=== PATIENT | female | born 1965 | race Caucasian/White ===

== ENCOUNTER → 2022-01-25 14:18 | Outpatient (CLI) | payer OTHER, SELFPAY ==
--- NOTE | ~2022-01-25 | CT_ITS ---
EXAMINATION: CT abdomen pelvis wo con DATE: 01/25/2022 14:44 INDICATION: Left flank pain. History kidney stones, recurrent urinary tract infections. TECHNIQUE: Computed tomography (CT) of the abdomen and pelvis was performed without intravenous contr ast. Automated exposure control and iterative reconstruction technique were employed. Exam dose: 740 .39 mGy-cm total exam DLP. COMPARISON: 01/25/2022 KUB FINDINGS: There is mild discoid atelectasis or scarring at the lung bases. Normal heart size. No mihaela cardial or pleural effusion. Cholelithiasis. No gallbladder wall thickening or pericholecystic fluid or fat stranding. No bile enedina t or pancreatic duct dilatation. No hepatic, splenic or pancreatic space-occupying mass lesion is evident. Normal morphology of the adrenal glands. No renal mass lesion or urinary tract calculus or hydroureteronephrosis. There is prominent lobular uterine enlargement with multiple uterine calcified fibroids. 1.5 cm left ovarian cyst. The urinary bladder is unremarkable. Normal appendix. Diverticulosis of left and right colon; no CT evidence of diverticulitis. No bowel o bstruction, bowel wall thickening, pneumatosis or intraperitoneal free air is detected. Normal caliber of the abdominal aorta. No intraperitoneal or retroperitoneal or pelvic mass lesion or adenopathy or ascites. No suspicious osteolytic or osteosclerotic lesions are noted. Moderately severe degenerative disc disease at L4-5 and L5-S1. IMPRESSION: Cholelithiasis No urinary tract calculus or hydroureteronephrosis Prominently enlarged lobular uterus with multiple calcified uterine fibroids 1.5 cm left ovarian cyst Normal appendix Diverticulosis of colon; no CT evidence of diverticulitis Reviewed, dictated and finalized at Location A. Reviewed, dictated and finalized at location B.
--- NOTE | ~2022-01-25 | XR_ITS ---
XR abdomen/kub 1V DATE: 01/25/2022 14:44 INDICATION: Left flank pain TECHNIQUE: AP ejection, 2 views COMPARISON: 01/25/[address] abdomen pelvis FINDINGS: Multiple calcified uterine fibroids. Calcified pelvic phleboliths. The psoas shadows are intact. No visceromegaly is detected. There is a moderately prominent of fecal material in the colon but no bowel obstruction. Mild levoscoliosis of lumbar spine. IMPRESSION: Multiple calcified uterine fibroids Reviewed, dictated and finalized at Location A. Reviewed, dictated and finalized at location B.
== END ==
PROVIDERS: PCP Physician Assistant Medical; Visit Provider Nurse Practitioner Family
DX: R10.9 Unspecified abdominal pain (principal); D25.9 Leiomyoma of uterus, unspecified; K80.20 Calculus of gallbladder without cholecystitis without obstruction; N83.202 Unspecified ovarian cyst, left side; K57.90 Diverticulosis of intestine, part unspecified, without perforation or abscess without bleeding
CPT/HCPCS: 74018; 74176

== ENCOUNTER → 2022-02-27 12:57 | Outpatient (CLI) | payer OTHER, SELFPAY ==
--- NOTE | ~2022-02-27 | US_ITS ---
EXAMINATION: US pelvic complete w TV DATE: 02/27/2022 13:54 INDICATION: Fibroids identified in the uterus on prior CT examination Comparison:CT dated 01/25/2022 TECHNIQUE: Multiple transabdominal and endovaginal sonographic images of the pelvis performed. FINDINGS: The uterus measures 12.1 x 7.2 x 6 cm. There are multiple uterine fibroids some of which ar e calcified, largest measuring 5.7 cm maximum dimension. The endometrial complex measures 7 mm. The right ovary is not visualized. Left ovary contains a 1.6 cm cyst. Left ovary measures 3.1 x 2.8 x 2.1 cm. There is no free fluid in the pelvis. There are no abnormal masses seen on either side. IMPRESSION: 1. Enlarged fibroid uterus. 2: Thickened endomtrial complex. The differential diagnosis includes endometrial hyperplasia, polyp a nd carcinoma. Biopsy is recommended. 3: Left ovarian cyst measuring 1.6 cm. Reviewed, dictated and finalized at location A. IMPRESSION: 1. Enlarged fibroid uterus. 2: Thickened endomtrial complex. The differential diagnosis includes endometria l hyperplasia, polyp and carcinoma. Biopsy is recommended. 3: Left ovarian cyst measuring 1.6 cm.
== END ==
PROVIDERS: PCP Physician Assistant Medical; Visit Provider Obstetrics & Gynecology
DX: Z11.51 Encounter for screening for human papillomavirus (HPV) (principal); Z12.4 Encounter for screening for malignant neoplasm of cervix; D25.9 Leiomyoma of uterus, unspecified; N83.202 Unspecified ovarian cyst, left side; R93.89 Abnormal findings on diagnostic imaging of other specified body structures
CPT/HCPCS: 76830; 76856

== ENCOUNTER 2022-03-30 00:15 | Day surgery (SDC) | payer OTHER, SELFPAY ==
[2022-03-14 14:38] VITALS: BMI 25.8
[2022-03-30 08:40] VITALS: BP 107/81; PULSE 84; RESP 20; TEMP 36.6; O2SAT 99; BMI 25.0
[2022-03-30] MEDS: LACTATED RINGERS 1,000 ML 150 ML IV CONT (08:49)
--- NOTE | 2022-03-30 08:52 | P.PNAN_ITS ---
Anes - Initial Pre Proc Eval Procedure: Operation Date: 03/30/22 09:45 Proposed Procedures p Screening Colonoscopy - Jose Albert MD Date/Time: 03/30/22 08:52 Surgeon: Jose Albert MD Pre Op Diagnosis: neoplasm screening, hx of colon polyps Patient Data Age: 56 Gender: F Height: 1.68 m Weight: 70.5 kg Last Vital Signs Temp 98 F 03/30/22 08:40 Pulse 84 03/30/22 08:40 Resp 20 03/30/22 08:40 BP 107/81 03/30/22 08:40 Pulse Ox 99 03/30/22 08:40 O2 Del Method Room Air 03/30/22 08:40 Allergies Allergy/AdvReac Type Severity Reaction Status Date / Time Sulfa (Sulfonamide Allergy Intermediate Hives Verified 03/30/22 08:39 Antibiotics) Home Medications Medication Instructions Recorded Confirmed Type cholecalciferol (vitamin D3) 25 25 mcg PO DAILY 02/05/22 03/14/22 History mcg (1,000 unit) capsule pravastatin 20 mg tablet 20 mg PO QHS #90 tabs 02/06/22 03/14/22 Rx Patient hx anesthesia problems: none Family hx anesthesia problems: none Results Review: All pre-operative results and documents have been reviewed as part of the pre- operative evaluation. [facility] Past Medical History Medical History (Updated 03/08/22 @ 09:40 by Thony Richmond MD) Acute sinus infection Breast cancer History of colon polyps Hyperlipidemia URI (upper respiratory infection) Surgical History Surgical History H/O mastectomy Family History Family History Father Malignant neoplasm of prostate Heart disease Cerebrovascular accident Mother Heart disease Grandparent Heart disease Social History Social History (Updated 03/07/22 @ 15:22 by Joleen Orr RN) Smoking status: Never smoker Alcohol intake: current Alcohol use details: socially Substance use: never Substance use type: does not use Living arrangements: with family 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 Informed Consent: The patient's anesthetic plan and its attendant risks and benefits were discussed with the patient/family/POA. Questions were solicited and answers provided to the satisfaction of the patient/family/POA.
--- NOTE | 2022-03-30 09:34 | PM.IMHP ---
H&P: HPI History of Present Illness Date/Time: 03/30/22 09:34 Chief Complaint: History of colon polyps. Narrative: This is a 56-year-old white female patient presents for screening colonoscopy. Patient reports that her current weight appetite and bowel movements are normal. She denies abdominal pain. Patient has had no bleeding. Family history noncontributory. Patient has prior colonoscopy 2017 showed tubular adenoma colon polyp. Patient presents today for surveillance colonoscopy. Review of Systems Review of Systems: Review of systems noncontributory. [facility] Past Medical History Medical History (Updated 03/08/22 @ 09:40 by Thony Richmond MD) Acute sinus infection Breast cancer History of colon polyps Hyperlipidemia URI (upper respiratory infection) Surgical History Surgical History H/O mastectomy Family History Family History Father Malignant neoplasm of prostate Heart disease Cerebrovascular accident Mother Heart disease Grandparent Heart disease Social History Social History (Updated 03/07/22 @ 15:22 by Joleen Orr RN) Smoking status: Never smoker Alcohol intake: current Alcohol use details: socially Substance use: never Substance use type: does not use Living arrangements: with family 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, [employer] Spiritual care concerns: No Agree to blood products: Yes Meds Home Medications and Allergies Home Medications Medication Instructions Recorded Confirmed Type cholecalciferol (vitamin D3) 25 25 mcg PO DAILY 02/05/22 03/14/22 History mcg (1,000 unit) capsule pravastatin 20 mg tablet 20 mg PO QHS #90 tabs 02/06/22 03/14/22 Rx Allergies Allergy/AdvReac Type Severity Reaction Status Date / Time Sulfa (Sulfonamide Allergy Intermediate Hives Verified 03/30/22 08:39 Antibiotics) Vital Signs Vital Signs - 24 hr 03/30/22 08:40 Temperature 98 F Pulse Rate 84 Respiratory Rate 20 Blood Pressure 107/81 Pulse Oximetry 99 Oxygen Delivery Room Air Exam Narrative: Physical exam reveals patient to be alert. Vital signs stable. HEENT exam unremarkable. Patient is anicteric. Lungs are clear to auscultation and percussion. Heart is without murmur or extra sounds. Abdomen bowel sounds present soft nontender with no organomegaly. Digital external rectal exam is normal. Assessment and Plan Assessment and plan (1) History of colon polyps: Code(s): Z86.010 - Personal history of colonic polyps Status: Acute Assessment and Plan: Patient presents for screening colonoscopy. Has a history of colon polyp 5 years ago. Surveillance colonoscopy suggested at 5 year intervals.
[2022-03-30 09:56] VITALS: BP 99/64; PULSE 78; RESP 16; O2SAT 99
[2022-03-30 10:06] VITALS: BP 98/60; PULSE 72; RESP 20; O2SAT 98
[2022-03-30 10:16] VITALS: BP 106/71; PULSE 74; RESP 20; O2SAT 98
== END 2022-03-30 10:21 | disposition home or self-care (01) ==
PROVIDERS: PCP Family Medicine; Visit Provider Internal Medicine Gastroenterology
PROC: 0DJD8ZZ Inspection of Lower Intestinal Tract, Via Natural or Artificial Opening Endoscopic (ICD-10-PCS; CPT 45378; principal; 2022-03-30 09:45)
DX: Z12.11 Encounter for screening for malignant neoplasm of colon (principal); Z86.010 Personal history of colon polyps; K64.8 Other hemorrhoids; K57.30 Diverticulosis of large intestine without perforation or abscess without bleeding; Z85.3 Personal history of malignant neoplasm of breast; E78.5 Hyperlipidemia, unspecified
CPT/HCPCS: 45378; J2704; J7120

== ENCOUNTER 2022-04-23 15:33 | Outpatient (CLI) | payer OTHER, SELFPAY ==
--- NOTE | ~2022-04-23 | DEXA_ITS ---
Bone Density Report Name: HELGA MAY Age: 56 Sex: Female Ethnicity: White Date of : 1965 Indication: postmenopausal; screening for osteoporosis; height loss; cancer; Referring Provider: SAVANNAH, LUKAS Granados Study: Bone densitometry was performed. Exam Date: April 23, 2022 Accession number: [id number] Bone Density: Region BMD T-score Z-score Classification AP Spine(L1-L4) 1.147 0.9 2.2 Normal Femoral Neck (Left) 0.905 0.5 1.7 Normal Total Hip (Left) 1.022 0.7 1.5 Normal Femoral Neck (Right) 0.962 1.0 2.2 Normal Total Hip (Right) 1.041 0.8 1.6 Normal Total Hip Mean 1.031 0.8 1.6 Normal World Health Organization criteria for BMD impression classify patients as: Normal (T-score at or above -1.0), Osteopenia (T-score between -1.0 and -2.5), or Osteoporosis (T-score at or below -2.5). 10-year Fracture Risk: FRAX not reported because: All T-scores for Spine Total, Hip Total, Femoral Neck at or above -1.0 Clinical Information Provided by Patient: Has used the following medications: Vitamin D Has the following medical conditions: Cancer Patient maximum height was 66 Menopause Age: 51 Does not regularly consume dairy products Drinks caffeinated beverages Onset of menses at age 10 Number of children 2 Impression: The patient has normal bone mass. Discussion: BONE DENSITY IS ABOVE THE MINIMUM DESIRABLE LEVEL AT ALL SKELETAL SITES TESTED. This patient?s bone mineral density is above the minimum desirable level (T-score -1.0 or better) at all sites measured. The patient should follow a healthful lifestyle (good nutrition with adequate calcium and vitamin D, and appropriate weight-bearing exercise). Follow-Up: Consider repeating this study in 5 years or sooner if there is some new clinical indication. Reported by: SAMANTHA on 04/23/2022 3:50:00 PM. Reviewed, dictated and finalized at location AYves WHEELER
== END 2022-04-23 15:34 | disposition home or self-care (01) ==
PROVIDERS: PCP Family Medicine; Visit Provider Family Medicine
DX: Z78.0 Asymptomatic menopausal state (principal)
CPT/HCPCS: 77080

== ENCOUNTER 2025-02-02 11:09 | Outpatient (CLI) | payer OTHER, SELFPAY ==
--- NOTE | ~2025-02-02 | US_ITS ---
EXAM: ABDOMEN ULTRASOUND HISTORY: R10.11 - Right upper quadrant pain COMPARISON: Reference is made to CT examination of the abdomen and pelvis dated 01/25/2022 FINDINGS: LIVER: The liver is unremarkable in echogenicity and size The portal vein is patent, demonstrating hepatopedal flow. The contour of the liver surface is smooth . GALLBLADDER: Multiple avascular polyps are identified within the gallbladder, which is otherwise unre markable. No gallbladder wall thickening or pericholecystic fluid. BILE DUCTS: Common bile duct measures 3.2mm. PANCREAS: Limited evaluation of the pancreas secondary to overlying bowel gas IMPRESSION: Limited evaluation of the pancreas secondary to overlying bowel gas Multiple avascular polyps within the gallbladder, which is otherwise unremarkable. Reviewed, dictated and finalized at location A. IMPRESSION: Limited evaluation of the pancreas secondary to overlying bowel gas Multiple avascular polyps within the gallbladder, which is otherwise unremarkab le.
== END 2025-02-02 11:10 | disposition home or self-care (01) ==
PROVIDERS: PCP Physician Assistant Medical; Visit Provider Nurse Practitioner Family
DX: K82.4 Cholesterolosis of gallbladder (principal)
CPT/HCPCS: 76705

== ENCOUNTER 2025-02-19 12:44 | Outpatient (CLI) | payer OTHER, SELFPAY ==
--- OUTSIDE RECORDS SUMMARY | 2025-02-19 12:48 | XMS_ITS | Encounter Summary ---
Author Organization [facility] Address [address] [place] [address] Care Team Providers Care Marine Cargo Surveyor Name Role Phone Unavailable Primary Care Provider Unavailabl e Encounter Details Date Type Department Care Team (Late st Contact Info) Description 08/28/2022 Lab Requisition [facility] DermPath Lab [address] [place] [address] Bakari Cowart MD [address] [place] [id number] Social History Tobacco Use Types Packs/Day Years Used Date Smoking Tobacco: Never Assessed Comments Unknown Sex and Gender Information Value Date Recorded Sex Assigned at Not on file 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 Gender Identity Not on file Sexual Orientation Not on file documented as of this encounter Plan of Treatment Not on file documented as of this encounter Procedures Procedure Name Priority Date/Time Associated Diagnosis Comments DERMATOPATHOLOGY Routine 08/28/2022 12:0 0 AM MINE EXPLORATION ENGINEER documented in this encounter Results * DERMATOPATHOLOGY (08/28/2022 12:00 AM MINE EXPLORATION ENGINEER) Case Report Dermatopathology Report Case: [id number] Authorizing Provider: Bakari Cowart MD Collected: 08/28/2022 12:00 AM Ordering Location: [facility] Derm[facility] Lab Received: 08/28/2022 04:08 PM Pathologist: Demarcus Franks MD Specimen: Skin, right anterior thigh 3 4:16 PM MINE EXPLORATION ENGINEER DERMATOPATHOLOGY LABORATORY Final Diagnosis Specimen A. SKIN, right anterior thigh: BENIGN VERRUCOUS KERATOSIS (L82.1) EPIDERMAL NECROSIS SUGGESTIVE OF EXCORIATION (L98.499) 3 4:16 PM MINE EXPLORATION ENGINEER DERMATOPATHOLOGY LABORATORY at 1616 MINE EXPLORATION ENGINEER Clinical History BCC vs SCC. Path#: [id number] 3 4:16 PM [facility] DERMATOPATHOLOGY LABORATORY Gross Description Specimen A: Received is one formalin filled container labeled with the patient's name and designated right anterior thigh. The specimen consists of a shave biopsy measuring 7x5x1 mm. Jar 0. 4:16 PM [facility] DERMATOPATHOLOGY LABORATORY Microscopic Description Specimen A. SKIN, right anterior thigh: Sections show hyperkeratosis, papillomatosis, hypergranulosis, and acanthosis. These histological findings can be seen in a verruca vulgaris or a seborrheic keratosis. The epidermis is focally necrotic and covered with a scale-crust. There is fibrin at the base. 4:16 PM [facility] DERMATOPATHOLOGY LABORATORY Disclaimer An external and internal positive and negative controls are appropriate for the histochemical, immunohistochemical and immunofluorescence stain(s) in this case (if any), except where stated explicitly. The performance characteristics of the stain(s) cited in this report were developed and its performance characteristic determined by the Dermatopathology Laboratory at [facility], directed by Dr. Hugh Franks. These tests need not be, and therefore are not, approved by the [place] Food and Drug Administration. The tests are used for clinical purposes. Billing Codes Specimen Charges Stain Charges 36076 1 3 4:16 PM [facility] DERMATOPATHOLOGY LABORATORY Embedded Images 4:16 PM [facility] DERMATOPATHOLOGY LABORATORY Pathology/Cytolog y TISSUE SPECIMEN FROM SKIN / Unknown 08/28/2022 08/28/2022 4:08 PM MINE EXPLORATION ENGINEER us Bakari Cowart MD LAB - PATHOLOGY/CYTOLOGY ORDER ADRIA Final Result DERMATOPATHOLOGY LABORATORY [facility] - Department of Dermatology [address] [place] [address], [facility] [phone] documented in this encounter Visit Diagnoses Not on filedocumented in this encounter
--- OUTSIDE RECORDS SUMMARY | 2025-02-19 12:48 | XMS_ITS | Clinical Summary ---
Author Organization [facility] Address [address] [place] [address] Care Team Providers Care Wood Heel Flap Trimmer Name Role Phone Unavailable Primary Care Provider Unavailabl e Source Comments [facility],non-owned Affiliates and Associated Physician Practices is amultiple site organization consisting of ambulatory clinics and hospital sitesin [place], [place], [place] and [place]. This disclosure is being madepursuant to the Care Everywhere program and may not contain all information available regarding this patient. 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 Gender Identity Not on file Sexual Orientation Not on file Plan of Treatment Health Maintenance Due Date Last Done Comments COLOGUARD (AGES 45-75) - COL ON CA SCREENING 1965 COLON MONITORING 1965 COLONOSCOPY - COLON CA SCREENING 1964 CT COLONOGRAPHY - COLON CA SCREENING 1965 Colorectal Cancer Screening 1965 FIT - COLON CA SCREENING 1965 FLEX SIG - COLON CA SCREENING 1965 LIPID TESTING 1965 MAMMOGRAM 1965 HIV SCREENING 1979 HEPATITIS C SCREENING 05/20/1982 DTAP/TDAP/TD VACCINES (1 - Tdap) 1983 PAP SMEAR 1985 PNEUMOCOCCAL VACCINE 50+ (1 of 1 - PCV) 2014 ZOSTER VACCINE (1 of 2) 2014 COVID-19 VACCINE ( - 2023-2 5 season) 2024 DEPRESSION SCREENING 07/08/2024 INFLUENZA VACCINE (#1) 2025 Respiratory Syncytial Virus (RSV) Vaccine Pt: or over 60 yrs (1 - 1-dose 75+ series) 2039 HEPATITIS B VACCINE Aged Out No longe r eligible based on patient's age to complete this topic HIB VACCINE Aged Out No longer eligi ble based on patient's age to complete this topic HPV VACCINE Aged Out No longer eligi ble based on patient's age to complete this topic MENINGOCOCCAL (Group B) VACC INE SHARED DECISION-MAKING Aged Out No longer eligibl e based on patient's age to complete this topic MENINGOCOCCAL GROUPS A/C/Y/W VACCINE Aged Out No longer eligible b ased on patient's age to complete this topic Insurance [facility] Address: [facility] [id number] [place] [address]
--- OUTSIDE RECORDS SUMMARY | 2025-02-19 12:48 | XMS_ITS | Clinical Summary ---
Author Organization [facility] Address [address] [place] [address] Care Team Providers Care Quartz Miner Name Role Phone Mis Maharaj MD Unavailable Christin Barrientos MD Unavailable [phone] Lashawn Kc PhD Unavailable [phone] Roxane Loving Primary Care Provider Allergies Active Allergy Reactions Criticality Noted Date Comments Sulfa (Sulfonamide Antibiotics) Unknown,Hives Medium 0 09/04/2016 Medications cholecalciferol (VITAMIN D-3) 1,000 unit tablet Take 1 tablet (1,000 Units total) by mouth daily Active rosuvastatin (CRESTOR) 20 mg tablet TAKE 1 TAB ORALLY DAILY 10/14/2024 Active Active Problems Problem Noted Date Diagnosed Date 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 03/11/2018 Cancer Staging:Clinical: Unsigned Pathologic:Stage 0(pTis (DCIS), pN0, cM0, G2, ER: Positive, NC: Positive, HER2: Not Assessed) - Signed by Lashawn Kc, PhD on 03/11/2018 History of breast cancer 03/11/2018 Immunizations Immunization Administration Dates Next Due Influenza, Quadrivalent, Flower l Culture-based MDCK, Preservative Free, Antibiotic Free, Intramuscular 04/15/2019 Influenza, Quadrivalent, Spl it, Preservative Free, Intramuscular 05/01/2021,04/26/2020,04/25/2018,04/24 Tdap 04/15/2019 Family History Medical History Relation Name Comments Prostate cancer Father Family histo ry of malignant neoplasm of prostate - (Added by TW Conv) Relation Name Status Comments Father Social History Tobacco Use Types Packs/Day Years Used Date Smoking Tobacco: Never Smokeless Tobacco: Never Tobacco Cessation:Counseling Given: Not Answered Alcohol Use Standard Drinks/Week Comments Yes 0 (1 standard drink = 0.6 oz pur e alcohol) occasionally Comments No Sex and Gender Information Value Date Recorded Sex Assigned at Not on file Legal Sex Female 11:58 AM CASHIER GREETER Gender Identity Female 11/21/2021 2:45 PM CDT Sexual Orientation Straight 11/21/2021 2: 45 PM CDT Obstetrics History Last Filed Vital Signs Vital Sign Reading Time Taken Comments Blood Pressure 110/79 11/01/2024 2:20 PM CDT Pulse 84 11/01/2024 2:20 PM CDT Temperature 37.2 C (98.9 F) 11/01/2024 2:20 PM CDT Respiratory Rate 20 11/01/2024 2:20 PM CDT Oxygen Saturation 97% 11/01/2024 2:20 PM CDT Inhaled Oxygen Concentration - - Weight 65.8 kg (145 lb) 11/01/2024 2:20 PM CDT Height 167.6 cm (5' 5.98) 08/11/2021 1:46 PM CS T Body Mass Index 23.42 08/11/2021 1:46 PM CASHIER GREETER Plan of Treatment Health Maintenance Due Date Last Done Comments Cervical Cancer Screening 1964 Colon Cancer Screening-Colonoscopy 1964 Depression Screening 1964 Hepatitis C Screening 1964 Hepatitis B Screening 1982 Regular Well Visit/Exam 18-64 1982 Zoster Vaccine (1 of 2) 2014 Covid-19 Vaccine ( season) 2024 05/11/2021, 08/19/2020, 07/21/2020 Influenza Vaccine (#1) 2025 , 04/26/2020, 04/15/2019, Additional history exists Breast Cancer Screening-Mammogram 09/04/2025 09/04/2024, 08/30/2023, 08/17/2022, Additional history exists DTaP/Tdap/Td Vaccine (2 - Td or Tdap) 04/15/2029 04/15/2019 Pneumococcal vaccine <65 Aged Out No longer eligible based on patient's age to complete this topic Procedures Procedure Name Priority Date/Time Associated Diagnosis Comments SCREENING MAMMOGRAM BILATERAL W ALEX Schedule Routine, Read Routine (OP Routine) 09/04/2024 11:04 AM CASHIER GREETER History of breast cancer from Last 3 Months or Most Recently Relevant to Health Maintenance Results * Screening Mammogram Bilateral W Alex (09/04/2024 11:04 AM CASHIER GREETER) Anatomical Region Laterality Modality Breast Bilateral Mammography Narrative 09/07/2024 10:32 AM CASHIER GREETER Mammogram Technique: Bilateral Digital Breast Tomosynthesis, Bilateral C-view 2D Screening mammogram. Views obtained: bilateral craniocaudal and bilateral mediolateral oblique. Computer Aided Detection was performed. Mammogram Findings: The present examination has been compared to prior imaging studies performed at [facility] on 08/17/2022, 08/30/2023 and 09/26/2023. There are scattered areas of fibroglandular density. There are post breast conservation therapy changes in the right breast. There is no suspicious abnormality in either breast. Impression: There is no mammographic evidence of malignancy. Annual screening mammography is recommended. OVERALL FINAL ASSESSMENT: BI-RADS CATEGORY 2: Benign. Procedure Note Sharan Meza MD - 09/07/2024 Mammogram Technique: Bilateral Digital Breast Tomosynthesis, Bilateral C-view 2D Screening mammogram. Views obtained: bilateral craniocaudal and bilateral mediolateral oblique. Computer Aided Detection was performed. Mammogram Findings: The present examination has been compared to prior imaging studies performed at [facility] on 08/17/2022, 08/30/2023 and 09/26/2023. There are scattered areas of fibroglandular density. There are post breast conservation therapy changes in the right breast. There is no suspicious abnormality in either breast. Impression: There is no mammographic evidence of malignancy. Annual screening mammography is recommended. OVERALL FINAL ASSESSMENT: BI-RADS CATEGORY 2: Benign. Nataliya Phan MAT CLEANING MACHINE OPERATOR IMG MAMMO PROCEDURES Final Result from Last 3 Months or Most Recently Relevant to Health Maintenance Insurance [facility] PPO [facility]POS CIGNA CIGNA Care Teams Quartz Miner Relationship Specialty [place] [address] [place] [address] PCP - General Family Practice 08/06/22 Mis Maharaj MD [address] [facility] [address] [place] [address] Radiation Oncologist Radiation Oncology 03/11/18 Christin Barrientos MD [address] [place] [address] Referring Physician Surgical Oncology 03/11/18 Lashawn Kc, PhD [address] [place] [address] Nurse Practitioner Radiation Oncology 09/08/18
--- OUTSIDE RECORDS SUMMARY | 2025-02-19 12:48 | XMS_ITS | Clinical Summary ---
Author Organization [facility] Address [address] [place] [address] Care Team Providers Care Design Verification Engineer Name Role Phone Roxane Loving PA-C Primary Care Provider [phone] Allergies Active Allergy Reactions Criticality Noted Date Comments Sulfa Antibiotics Hives 07/19/2024 Medications ondansetron (ZOFRAN-ODT) 4 MG disintegrating tablet Take 1 tablet (4 mg total) by mouth every 8 (eight) hours as needed for Nausea. 20 tablet 5 Active traMADol (ULTRAM) 50 MG tabletIndications:A cute Pain < 7 Day Supply Take 1 tablet (50 mg total) by mouth every 6 (six) hours as needed. Indications : Acute Pain < 7 Day Supply 20 tablet 5 Active naproxen (NAPROSYN) 500 MG tablet TAKE 1 TABLET BY MOUTH TWICE A DAY WITH MEALS 60 tablet 5 Active Social History Tobacco Use Types Packs/Day Years Used Date Smoking Tobacco: Never Smokeless Tobacco: Never Tobacco Cessation:Counseling Given: Not Answered Alcohol Use Standard Drinks/Week Comments Never 0 (1 standard drink = 0.6 oz pur e alcohol) Comments Unknown Sex and Gender Information Value Date Recorded Sex Assigned at Not on file Legal Sex Female 5:46 PM CDT Gender Identity Not on file Sexual Orientation Not on file Last Filed Vital Signs Vital Sign Reading Time Taken Comments Blood Pressure 125/81 07/19/2024 9:23 AM SCHOOL RESOURCE OFFICER Pulse 66 07/19/2024 9:23 AM SCHOOL RESOURCE OFFICER Temperature 36.7 C (98 F) 07/19/2024 9:23 AM SCHOOL RESOURCE OFFICER Respiratory Rate 18 07/19/2024 9:23 AM SCHOOL RESOURCE OFFICER Oxygen Saturation 95% 07/19/2024 8:38 AM SCHOOL RESOURCE OFFICER Inhaled Oxygen Concentration - - Weight 65.8 kg (145 lb) 07/19/2024 7:21 AM SCHOOL RESOURCE OFFICER Height 165.1 cm (5' 5) 07/19/2024 7:16 AM SCHOOL RESOURCE OFFICER Body Mass Index 24.13 07/19/2024 7:16 AM SCHOOL RESOURCE OFFICER Plan of Treatment Health Maintenance Due Date Last Done Comments Cervical Cancer Screening Pap Smear (Age 30 to 64) Every 3 Years 1964 Colorectal Cancer Screening Colonoscopy (10 Years) 1964 Annual Physical 1967 Hepatitis C 1982 Cervical Cancer Screening Pap with HPV Testing (Age 30 to 64) Every 5 Years 1994 Cervical Cancer Screening with HPV 1994 Pneumococcal Vaccine: 50+ Years (1 of 1 - PCV) 2014 Zoster Vaccines (1 of 2) 2014 COVID-19 Vaccine ( - season) 2024 05/11/2021, 08/19/2020, 07/21/2020 Mammogram Screening 09/25/2025 09/26/2023, 08/30/2023, 08/17/2022, Additional history exists DTaP, Tdap and Td Vaccines (2 - Td or Tdap) 04/15/2029 04/15/2019 RSV Immunization or 60+ Years (1 - 1-dose 75+ series) 2039 Meningococcal B Vaccine Aged Out No l [place] eligible based on patient's age to complete this topic Meningococcal Vaccine Aged Out No [place] eligible based on patient's age to complete this topic RSV Immunizations Under 20 Months Aged Out No longer eligible based on patient's age to complete this topic Insurance [employer] Care Teams Design Verification Engineer Relationship Specialty Start Date End Date Roxane Loving PA-C [address] [place] [address] [address] [place] [address] PCP - General PHYSICIAN SOLAR PHOTOVOLTAIC ELECTRICIAN 07/25/23
--- NOTE | 2025-02-19 12:59 | ECG_ITS ---
Test Date: 2025-02-19 13:14:13 Measurements Intervals [place] Rate: 80 P: 36 MD: 126 QRS: 11 QRSD: 114 T: 63 QT: 375 QTc: 434 Interpretive Statements SINUS RHYTHM WITH SINUS ARRHYTHMIA INCOMPLETE RIGHT BUNDLE BRANCH BLOCK BORDERLINE ST-T WAVE ABNORMALITY- ANT/HIGH LAT LEADS BASELINE ARTIFACT- I, II, III, AVR, AVL ,AVF BORDERLINE ECG No previous ECG available for comparison Electronically Signed On 02-19-2025 13:54:11 CDT by Devin Redman D.O.
[2025-02-19 13:49] LABS: Amylase 98 U/L (30-110); Lipase 122 U/L (23-300)
== END 2025-02-19 12:45 | disposition home or self-care (01) ==
PROVIDERS: PCP Physician Assistant Medical; Visit Provider Surgery
DX: Z01.818 Encounter for other preprocedural examination (principal); K80.20 Calculus of gallbladder without cholecystitis without obstruction
CPT/HCPCS: 36415; 82150; 83690; 93005

== ENCOUNTER 2025-03-01 00:34 | Day surgery (SDC) | payer OTHER, SELFPAY ==
[2025-02-18 11:51] VITALS: BMI 25.0
--- NOTE | 2025-02-18 11:52 | PC.NURSE ---
Report to the Outpatient Waiting Room, entrance under the green pavilion located off [facility], at time _0900_ on date _03-01-25_. Planned Procedure Time: _1100_.? Time changes happen often and if your time is changed the preop area will call you the afternoon before. - You and your visitor will be asked to self-screen and do not enter if you have any COVID symptoms. Please call surgeon if you need to reschedule. - A mask is optional within the hospital at this time. Patients may have clear liquids (water, carbonated beverages, clear teas, apple juice) until 3 hours prior to surgery with a maximum of 20 ounces. - No food from midnight until time of surgery and no smoking, or chewing tobacco (or any form of nicotine). No chewing gum, candy or mints. Take only the following medications with a SIP of water on the morning of surgery: __None DO NOT STOP ANY OF YOUR OTHER PRESCRIPTION MEDICATIONS PRIOR TO SURGERY EXCEPT THE FOLLOWING Hold all vitamins and supplements for 3 days per anesthesiologist. Medications to discontinue per physician Date to take last dose Please no make-up, nail jordanian, hairspray, perfume, deodorant, or body powder the day of surgery.? No jewelry (including any body piercings) or valuables the day of surgery, leave them at home.? Please take a shower or bath the night before, or the morning of, surgery with an antibacterial soap.? Wear comfortable, loose fitting clothing.? - Jewelry must be removed prior to entering the operating room.? Rings and piercings that are not removed may be cut off. - The hospital will not accept responsibility for valuables.? - Please leave all valuables, including medications, at home the day of surgery. If you are going home after surgery, a licensed coach driver must drive you home.? - NO public transportation without another adult if you receive anesthesia. - We recommend that an adult stay with you for 24 hours following discharge. - We also recommend that you do not drive, make important decision, drink alcoholic beverages, or take any drugs that were not prescribed by your health care provider for at least 24 hours after your discharge time. Follow any additional instructions given to you from your surgeon. Telephone instructions given to __Briana__and asked if any additional questions and then verbalized understanding. Patient advised to call surgeon office or pre surgery nurse liaison [phone] if any additional questions.
[2025-03-01] VITALS (9 sets, daily range): BP systolic 101–128; BP diastolic 62–77; PULSE 68–88; RESP 10–18; TEMP 36.2–36.9; O2SAT 99–100
--- OUTSIDE RECORDS SUMMARY | 2025-03-01 00:36 | XMS_ITS | Clinical Summary ---
Author Organization [facility] Address [address] [place] [address] Care Team Providers Care Executive Vice President And Chief Financial Officer Name Role Phone Roxane Loving PA-C Primary Care Provider [phone] Allergies Active Allergy Reactions Criticality Noted Date [...] Comments Blood Pressure 125/81 07/19/2024 9:23 AM NEW ACCOUNTS REPRESENTATIVE Pulse 66 07/19/2024 9:23 AM NEW ACCOUNTS REPRESENTATIVE Temperature 36.7 C (98 F) 07/19/2024 9:23 AM NEW ACCOUNTS REPRESENTATIVE Respiratory Rate 18 07/19/2024 9:23 AM NEW ACCOUNTS REPRESENTATIVE Oxygen Saturation 95% 07/19/2024 8:38 AM NEW ACCOUNTS REPRESENTATIVE Inhaled Oxygen Concentration - - Weight 65.8 kg (145 lb) 07/19/2024 7:21 AM NEW ACCOUNTS REPRESENTATIVE Height 165.1 cm (5' 5) 07/19/2024 7:16 AM NEW ACCOUNTS REPRESENTATIVE Body Mass Index 24.13 07/19/2024 7:16 AM NEW ACCOUNTS REPRESENTATIVE Plan of Treatment Health Maintenance Due Date [...] complete this topic Insurance [employer] Care Teams Executive Vice President And Chief Financial Officer Relationship Specialty Start Date End Date Roxane Loving PA-C [address] [place] [address] [address] [place] [address] PCP - General PHYSICIAN SCREENER AND BLENDER OPERATOR 07/25/23
--- OUTSIDE RECORDS SUMMARY | 2025-03-01 00:36 | XMS_ITS | Encounter Summary ---
Author Organization [facility] Address [address] [place] [address] Care Team Providers Care Flight Control Manager Name Role Phone Unavailable Primary Care Provider Unavailabl e Encounter Details Date Type Department Care Team (Late st Contact Info) Description 08/28/2022 Lab Requisition [facility] [address] [facility] [place] [address] Bakari Cowart MD [address] [place] [address] Social History Tobacco Use Types Packs/Day Years Used Date Smoking Tobacco: Never Assessed Comments Unknown Sex and Gender Information Value Date Recorded Sex Assigned at Not on file Legal Sex Female 3:34 PM WAITER/WAITRESS COUNTER Gender Identity Not on file Sexual Orientation Not on file documented as of this encounter Plan of Treatment Not on file documented as of this encounter Procedures Procedure Name Priority Date/Time Associated Diagnosis Comments DERMATOPATHOLOGY Routine 08/28/2022 12:0 0 AM WAITER/WAITRESS COUNTER documented in this encounter Results * DERMATOPATHOLOGY (08/28/2022 12:00 AM WAITER/WAITRESS COUNTER) Case Report Dermatopathology Report Case: [id number] Authorizing Provider: Bakari Cowart MD Collected: 08/28/2022 12:00 AM Ordering Location: [facility] Received: 08/28/2022 04:08 PM Pathologist: Demarcus Franks MD Specimen: Skin, right anterior thigh 3 4:16 PM WAITER/WAITRESS COUNTER DERMATOPATHOLOGY LABORATORY Final Diagnosis Specimen A. SKIN, right anterior thigh: BENIGN VERRUCOUS KERATOSIS (L82.1) EPIDERMAL NECROSIS SUGGESTIVE OF EXCORIATION (L98.499) 3 4:16 PM WAITER/WAITRESS COUNTER DERMATOPATHOLOGY LABORATORY at 1616 WAITER/WAITRESS COUNTER Clinical History BCC vs SCC. Path#: [id number] 3 4:16 PM [facility] Gross Description Specimen A: Received is one formalin filled container labeled with the patient's name and designated right anterior thigh. The specimen consists of a shave biopsy measuring 7x5x1 mm. Jar 0. 4:16 PM [facility] DERMAT[facility]ORATORY Microscopic Description Specimen A. SKIN, right anterior thigh: Sections show hyperkeratosis, papillomatosis, hypergranulosis, and acanthosis. These histological findings can be seen in a verruca vulgaris or a seborrheic keratosis. The epidermis is focally necrotic and covered with a scale-crust. There is fibrin at the base. 4:16 PM [facility]ORATORY Disclaimer An external and internal positive and negative controls are appropriate for the histochemical, immunohistochemical and immunofluorescence stain(s) in this case (if any), except where stated explicitly. The performance characteristics of the stain(s) cited in this report were developed and its performance characteristic determined by the Dermatopathology Laboratory at [facility], directed by Dr. Hugh Franks. These tests need not be, and therefore are not, approved by the [place] Food and Drug Administration. The tests are used for clinical purposes. Billing Codes Specimen Charges Stain Charges 59680 1 3 4:16 PM [facility] Embedded Images 4:16 PM [facility] Pathology/Cytolog y TISSUE SPECIMEN FROM SKIN / Unknown 08/28/2022 08/28/2022 4:08 PM WAITER/WAITRESS COUNTER us Bakari Cowart MD LAB - PATHOLOGY/CYTOLOGY ORDER [place] Final Result DERMATOPATHOLOGY LABORATORY [facility] - Department of Dermatology [address] [place] [address], [facility] [phone] documented in this encounter Visit Diagnoses Not on filedocumented in this encounter
--- OUTSIDE RECORDS SUMMARY | 2025-03-01 00:36 | XMS_ITS | Clinical Summary ---
Author Organization [facility] Address [address] [place] [address] Care Team Providers Care Career Portals Teacher Name Role Phone Unavailable Primary Care Provider Unavailabl e Source Comments [facility],non-owned Affiliates and Associated Physician Practices is amultiple site organization consisting of ambulatory clinics and hospital sitesin [place], [place], [place] and [place]. This disclosure is being madepursuant to the Care Everywhere program and may not contain all information available regarding this patient. Last updated 18.[facility] Social History Tobacco Use Types Packs/Day Years Used Date Smoking Tobacco: Never Assessed Comments Unknown Sex and Gender Information Value Date Recorded Sex Assigned at Not on file Legal Sex Female 3:34 PM SOCCER BALL ASSEMBLER Gender Identity Not on file Sexual Orientation [...] patient's age to complete this topic Insurance [facility] Address: [facility] [id number] [place] [address]
--- OUTSIDE RECORDS SUMMARY | 2025-03-01 00:36 | XMS_ITS | Clinical Summary ---
Author Organization [facility] Address [address] [place] [address] Care Team Providers Care Printing Machinist Name Role Phone Mis Maharaj MD Unavailable Christin Barrientos MD Unavailable [phone] Lashawn Kc PhD Unavailable [phone] Roxane Loving Primary Care Provider [phone] Allergies Active Allergy Reactions Criticality Noted Date [...] 0(pTis (DCIS), pN0, cM0, G2, ER: Positive, [place]: Positive, HER2: Not Assessed) - Signed by [...] on file Legal Sex Female 11:58 AM BATH ATTENDANT Gender Identity Female 11/21/2021 2:45 PM CDT [...] Body Mass Index 23.42 08/11/2021 1:46 PM BATH ATTENDANT Plan of Treatment Health Maintenance Due Date [...] Read Routine (OP Routine) 09/04/2024 11:04 AM BATH ATTENDANT History of breast cancer from Last 3 Months or Most Recently Relevant to Health Maintenance Results * Screening Mammogram Bilateral W Alex (09/04/2024 11:04 AM BATH ATTENDANT) Anatomical Region Laterality Modality Breast Bilateral Mammography Narrative 09/07/2024 10:32 AM BATH ATTENDANT Mammogram Technique: Bilateral Digital Breast Tomosynthesis, Bilateral C-view 2D Screening mammogram. Views obtained: bilateral craniocaudal and bilateral mediolateral oblique. Computer Aided Detection was performed. Mammogram Findings: The present examination has been compared to prior imaging studies performed at [facility] on 08/17/2022, 08/30/2023 and 09/26/2023. There are [...] compared to prior imaging studies performed at [facility] on 08/17/2022, 08/30/2023 and 09/26/2023. There are scattered areas of fibroglandular density. There are post breast conservation therapy changes in the right breast. There is no suspicious abnormality in either breast. Impression: There is no mammographic evidence of malignancy. Annual screening mammography is recommended. OVERALL FINAL ASSESSMENT: BI-RADS CATEGORY 2: Benign. Nataliya Phan COMMUNITY EDUCATOR IMG MAMMO PROCEDURES Final Result from Last 3 Months or Most Recently Relevant to Health Maintenance Insurance [facility] CIGNA CIGNA Care Teams Printing Machinist Relationship Specialty [place] [address] [place] [address] PCP - General Family Practice 08/06/22 Mis Maharaj MD [address] [facility] [address] [place] [address] Radiation Oncologist Radiation Oncology 03/11/18 Christin Barrientos MD [address] [place] [address] Referring Physician Surgical Oncology 03/11/18 Lashawn Kc, PhD [address] [place] [address] Nurse Practitioner Radiation Oncology 09/08/18
[2025-03-01] MEDS: ACETAMINOPHEN 500 MG TABLET 1000 MG PO (09:21)
[2025-03-01] MEDS: LACTATED RINGERS 1,000 ML 30 ML IV CONT ×2 (09:25→12:20)
[2025-03-01] MEDS: KETOROLAC 15 MG/ML VIAL (*BKC) IV PUSH (09:27)
--- NOTE | 2025-03-01 10:20 | S_PTH ---
PATIENT: Briana Hernandez LOC: [facility] U#:[id number] AGE/SX: 59/F ROOM: RE03/01/[address]: Orlin Joyce MD : 1965 BED: DIS: 03/01/2025 SPEC #: [id number] RECD: 03/01/25 13:04 STATUS: JESUS MANUEL REQ #: [id number] ANAIS: 03/01/25 10:[address]: Orlin Joyce DEPT: [facility] Surgical RECD BY: An Hare ENTERED: 03/01/25 13:04 SP TYPE: Surgical OTHR DR: Roxane Loving PA-C Tissues: A - Gallbladder Procedures: Hematoxylin and Eosin Stain Gross and Microscopic Level 3
--- NOTE | 2025-03-01 10:33 | WPDHPUPDATE1 ---
History and Physical Update Update Date/Time: 03/01/25 10:33 History and Physical has been reviewed, including an updated exam of the patient. There are NO changes in the patient's condition. Risks, benefits, and alternatives have been discussed and questions answered. Patient agrees to proceed with procedure.
--- NOTE | 2025-03-01 10:48 | WPDANESEPPF ---
Anes - Initial Pre Proc Eval Procedure: Operation Date: 03/01/25 11:00 Proposed Procedures p Laparoscopic Cholecystectomy, Possible Open - Orlin Joyce MD Date/Time: 03/01/25 10:48 Surgeon: Orlin Joyce MD Pre Op Diagnosis: symptomatic cholelithiasis Patient Data Age: 59 Gender: F Height: 1.65 m Weight: 69 kg Last Vital Signs Temp 36.9 C 03/01/25 09:05 Pulse 71 03/01/25 09:05 Resp 18 03/01/25 09:05 BP 110/77 03/01/25 09:05 Pulse Ox 99 03/01/25 09:05 O2 Del Method Room Air 03/01/25 09:05 Allergies Allergy/AdvReac Type Severity Reaction Status Date / Time Sulfa (Sulfonamide Allergy Intermediate Hives Verified 03/01/25 09:09 Antibiotics) Home Medications ?Medication ?Instructions ?Recorded ?Confirmed ?Type cholecalciferol (vitamin D3) 25 25 mcg PO DAILY 02/05/22 03/01/25 History mcg (1,000 unit) capsule rosuvastatin 20 mg tablet (Crestor) 20 mg PO DAILY #30 tabs 02/03/25 03/01/25 Rx Patient hx anesthesia problems: none Family hx anesthesia problems: none Results Review: All pre-operative results and documents have been reviewed as part of the pre-operative evaluation. [facility] Past Medical History Medical History History of colon polyps Diverticulosis Hyperlipidemia Breast cancer Surgical History Surgical History H/O mastectomy partial right 2017 Family History Family History Father Malignant neoplasm of prostate Heart disease Cerebrovascular accident Mother Heart disease Grandparent Heart disease Social History Social History Social History: 07/21/24 very confident with medical forms 02/01/25 patient declined SDOH Smoking status: Never smoker Alcohol intake: current Alcohol use details: socially Substance use: never Substance use type: does not use Do You Feel Safe in your Home?: Yes Lack of Transportation: No Lack of Food: Never True Current Housing: I Have Housing Concerned About Future Housing: No Difficulty Paying Gas/Electric Bills: No Difficulty Paying for Meds: No Currently Unemployed: No Education: Bachelor's Degree Difficulty w/ Childcare or Family Care: No Living arrangements: with family Occupation/Education: occupation 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 Informed Consent: The patient's anesthetic plan and its attendant risks and benefits were discussed with the patient/family/POA. Questions were solicited and answers provided to the satisfaction of the patient/family/POA.
[2025-03-01] MEDS: LIDO 1%/EPINEPHRINE 1:100,000 20 ML VIAL 30 ML INFILTRATE (11:05)
[2025-03-01] MEDS: ceFAZolin 2 GM in SODIUM CHLORIDE 0.9% IV 50 ML 100 ML IVPB (11:05)
--- NOTE | 2025-03-01 12:17 | W.PM.PROC2 ---
Procedure Note - Detailed Date of Procedure 03/01/25 Pre-op Diagnosis Symptomatic cholelithiasis Post-op Diagnosis Other (Chronic cholecystitis secondary to cholelithiasis) Procedure Performed Laparoscopic cholecystectomy Surgeon Orlin Joyce MD Compressor Assembler Joon Slade SA Anesthesia General Indications Patient is a 59-year-old female who presented with complaints of having intermittent right upper quadrant abdominal pain mostly associated with eating. She had abdominal ultrasound performed which showed small shadowing years consistent with a small gallbladder polyps and small gallstones. She presents now for elective laparoscopic cholecystectomy. Findings The patient had adhesions of the omentum to the liver and to the gallbladder wall consistent with chronic inflammatory changes and chronic cholecystitis. She had multiple small gallstones palpated within the gallbladder after it had been removed. Description of Procedure After informed consent was obtained patient brought to the operating room she was placed supine position and general endotracheal anesthesia was administered. The abdomen is then prepped and draped usual sterile fashion. A time-out was then performed correctly identifying the patient as well as procedure to be performed. She was given perioperative IV antibiotics. I entered the abdomen left upper quadrant utilizing a 5mm Optiview port. Once inside the abdomen insufflated to adequate pneumoperitoneum of 15mmHg of CO2. There were no adhesions around the area the umbilicus so I then placed a 5mm periumbilical trocar port. Laparoscopic was then switched over to this trocar port and looking to the upper portions of the abdomen I placed an epigastric 12mm trocar port and then 2 more 5mm right subcostal trocar ports all under direct visualization. The gallbladder appeared to be chronically inflamed with some mild thickening of the gallbladder wall. There were adhesions of the omentum to the gallbladder wall and to the edge of the liver. Utilizing electrocautery then proceeded to release the adhesions of the omentum to the edge of the right lobe of the liver. This then allowed me to hold the gallbladder at the dome and then stripped down additional omental adhesions to the gallbladder wall with the laparoscopic dissected. I was then able to place a 2nd grasper onto the infundibular gallbladder and I continued stripping down the visceral peritoneum and the omental adhesions until I identified the cystic duct. Cystic duct was then dissected out circumferentially. The cystic artery was identified and dissected out circumferentially as well. Posterior wall the gallbladder at the infundibulum dissected free of the liver into the critical view was obtained. I then placed 2 clips proximally cystic duct and 2 clips distally high on infundibular gallbladder. Cystic duct was then divided with Endo Juan. In a similar fashion cystic artery clipped and divided as well. The gallbladder was resected off the liver utilized electrocautery without spilling any bile or any gallstones. Once the gallbladder was free from the liver is placed into an Endo-Catch bag and brought out through the epigastric port site. The gallbladder was palpated had some small gallstones within it. It was sent to pathology for examination with gallstones within it. I then irrigated out the right upper quadrant abdomen gallbladder fossa with sterile saline solution. Hemostasis in the liver bed was good. I then checked the omentum which had been stripped off the gallbladder and the liver and hemostasis was good in those areas as well. No some bile leak was seen. I then aspirated the fluid from the right upper quadrant and from the pelvis. I then removed all the trocar ports under visualization all port sites appeared hemostatic. The abdomen was then allowed to decompress. I irrigated out all the port sites sterile saline solution. The 12mm epigastric trocar port fascial defect was then closed utilizing 0 Vicryl suture placed in a figure-eight fashion. The skin edges in all the port sites were then approximated utilizing a running subcuticular 4-0 Monocryl suture. All the port sites were then injected with 1% lidocaine mixed with 0.5% Marcaine around all the incisions for postoperative pain relief. The incisions were then dressed with skin glue. The patient tolerated the procedure well no complications. All sponges, needles, and instrument counts were correct at the end procedure. EBL was _ 25 __cc. The patient was awakened and taken to recovery in stable and satisfactory condition. Implants None Estimated Blood Loss 25 Drains No Packing No Pathology Yes (Gallbladder and gallstones to pathology) Complications No immediate complications Condition Stable Disposition PACU [facility] Billing Surgery - Charge Forward: Surgery Billing
[2025-03-01] MEDS: fentaNYL CITRATE INJ (*CRX) 100 MCG/2 ML VIAL 25 MCG IV PUSH ×4 (12:32→12:47)
[2025-03-01] MEDS: ONDANSETRON INJ 4 MG/2 ML VIAL IV PUSH (12:50)
[2025-03-01] MEDS: oxyCODONE HCL (*CRX) 5 MG TAB IR PO (13:50)
== END 2025-03-01 14:40 | disposition home or self-care (01) ==
PROVIDERS: PCP Physician Assistant Medical; Visit Provider Surgery
PROC: 0FT44ZZ Resection of Gallbladder, Percutaneous Endoscopic Approach (ICD-10-PCS; CPT 47562; principal; 2025-03-01 11:00)
DX: K80.10 Calculus of gallbladder with chronic cholecystitis without obstruction (principal); K66.0 Peritoneal adhesions (postprocedural) (postinfection); E78.5 Hyperlipidemia, unspecified; Z90.11 Acquired absence of right breast and nipple; Z86.0100 Personal history of colon polyps, unspecified; Z87.19 Personal history of other diseases of the digestive system; Z85.3 Personal history of malignant neoplasm of breast; Z80.42 Family history of malignant neoplasm of prostate; Z82.49 Family history of ischemic heart disease and other diseases of the circulatory system
CPT/HCPCS: 47562; 88304; J0690; A9270; J1100; J1885; J2004; J2405; J2704; J3010; J7120